=== PATIENT | female | born 1965 | race Caucasian/White ===

== ENCOUNTER 2018-08-20 16:46 | Emergency (ER) | payer OTHER ==
[~2018-08-20] VITALS: Ht 162.6 cm; Wt 56.4 kg
[2018-08-20 16:53] VITALS: Ht 162.6 cm; Wt 56.4 kg
[2018-08-20] MEDS ORDERED: KETOROLAC 30 MG INJ IV STA (17:00)
[2018-08-20] MEDS ORDERED: SODIUM CHLORIDE 0.9% 1L BAG IV* STA (17:00)
[2018-08-20] MEDS ORDERED: CEFEPIME 2GM/50 ML (PMX) 50 ML IVPB STA (17:00)
--- NOTE | 2018-08-20 17:29 | ERD ---
ER Documentation Chief Complaint Chief Complaint fever HPI 52-year-old female with no significant past medical history presenting with complaints of joint pain and back pain for the past 1.5 months. She feels that yesterday she started having fevers. She denies any dysuria but states that there is a foul smell to her urine. She denies any chest pain, shortness of breath, diarrhea, constipation, abdominal pain. She does have a mild cough. No URI symptoms otherwise. She went to her primary care doctor about a week ago where she had blood work done that did not show any significant abnormalities. At that time she did not have a fever. 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 ROS All systems reviewed and are negative except as per history of present illness. Medications Home Meds Active Scripts Ciprofloxacin Hcl* (Ciprofloxacin Hcl*) 500 Mg Tablet, 500 MG PO BID for 7 Days, TAB Prov:NUVIA CABALLERO MD 08/20/18 Ibuprofen* (Motrin*) 600 Mg Tab, 600 MG PO Q6H PRN for PAIN AND OR ELEVATED TEMP, #30 TAB Prov:NUVIA CABALLERO MD 08/20/18 Reported Medications Cyclobenzaprine Hcl* (Cyclobenzaprine Hcl*) 5 Mg Tablet, 5 MG PO Q8H, #60 TAB 08/20/18 Allergies Allergies: Coded Allergies: No Known Allergy (Unverified , 08/20/18) PMhx/Soc Medical and Surgical Hx: pt denies Medical Hx Hx Alcohol Use: No Hx Substance Use: No Hx Tobacco Use: No FmHx Family History: diabetes, coronary disease (Mother) Physical Exam Vitals Vital Signs Date Temp Pulse Resp B/P (MAP) Pulse Ox O2 O2 Flow FiO2 Time Delivery Rate 08/20/18 98.0 98 18 114/92 100 Room Air 20:53 (99) 08/20/18 100.3 114 19 112/76 100 Room Air 18:46 (88) 08/20/18 140 22 108/73 97 Room Air 17:30 (85) 08/20/18 104.0 156 28 133/69 97 16:53 (90) Physical Exam Const: No acute distress, nontoxic Head: Atraumatic Eyes: Normal Conjunctiva ENT: Normal External Ears, Nose and Mouth. Neck: Full range of motion. No meningismus. Resp: Left basilar crackles. No wheezing Cardio: Tachycardic with regular rhythm, no murmurs Abd: Soft, non tender, non distended. Normal bowel sounds Skin: No petechiae or rashes Back: No midline or flank tenderness Ext: No cyanosis, or edema. No joint swelling, redness, or overlying erythema. Neur: Awake and alert, normal speech, no facial asymmetry, strength and sensations intact in all 4 extremities Psych: Normal Mood and Affect Result Diagram: 08/20/18 1719 08/20/18 171 Results 24 hrs Laboratory Tests Test 08/20/18 17:11 08/20/18 17:19 08/20/18 17:33 08/20/18 19:25 POC Venous 1.9 mmol/L Lactate White Blood Count 11.1 10^3/ul Red Blood Count 4.31 10^6/ul Hemoglobin 12.0 g/dl Hematocrit 38.1 % Mean Corpuscular 88.4 fl Volume Mean Corpuscular 27.8 pg Hemoglobin Mean Corpuscular 31.5 g/dl Hemoglobin Concen t Red Cell 13.0 % Distribution Width Platelet Count 295 10^3/UL Mean Platelet 10.0 fl Volume Immature 0.800 % Granulocytes % Neutrophils % 81.6 % Lymphocytes % 14.5 % Monocytes % 2.4 % Eosinophils % 0.3 % Basophils % 0.4 % Nucleated Red 0.0 /100WBC Blood Cells % Immature 0.090 10^3/ul Granulocytes # Neutrophils # 9.0 10^3/ul Lymphocytes # 1.6 10^3/ul Monocytes # 0.3 10^3/ul Eosinophils # 0.0 10^3/ul Basophils # 0.0 10^3/ul Nucleated Red 0.0 10^3/ul Blood Cells # Erythrocyte 34 mm/Hr Sedimentation Rate Prothrombin Time 13.0 Sec Prothrombin Time 1.0 Ratio INR International 0.97 Normalized Ratio Activated 27.1 Sec Partial Thrombopl ast Time Sodium Level 138 mmol/L Potassium Level 4.3 mmol/L Chloride Level 107 mmol/L Carbon Dioxide 23 mmol/L Level Anion Gap 8 Blood Urea 11 mg/dl Nitrogen Creatinine 0.76 mg/dl Est Glomerular > 60 mL/min Filtrat Rate mL/min Glucose Level 130 mg/dl Calcium Level 8.8 mg/dl Total Bilirubin 0.6 mg/dl Direct Bilirubin 0.00 mg/dl Indirect 0.6 mg/dl Bilirubin Aspartate Amino 150 IU/L Transf (AST/SGOT) Alanine 111 IU/L Aminotransferase (ALT/SGPT) Alkaline 259 IU/L Phosphatase Troponin I < 0.012 ng/ml C-Reactive 6.3 mg/dl Protein Total Protein 7.7 g/dl Albumin 4.2 g/dl Globulin 3.50 g/dl Albumin/Globulin 1.20 Ratio Urine Color YELLOW Urine Clarity CLOUDY Urine pH 5.0 Urine Specific 1.014 Logan Urine Ketones NEGATIVE mg/dL Urine Nitrite POSITIVE mg/dL Urine Bilirubin NEGATIVE mg/dL Urine NEGATIVE mg/dL Urobilinogen Urine Leukocyte 3+ Felipe/ul Esterase Urine Microscopic 20 /HPF RBC Urine Microscopic > 182 /HPF WBC Urine Squamous FEW /HPF Epithelial Cells Urine Bacteria MODERATE /HPF Urine Mucus FEW /HPF Urine Hemoglobin 2+ mg/dL Urine Glucose NEGATIVE mg/dL Urine Total 1+ mg/dl Protein Lactic Acid Level 1.2 mmol/L Current Medications Medications Dose Sig/Evaristo Start Time Status Last (Trade) Ordered Route PRN Stop Time Admin Dose Reason Admin Sodium 1,690 ml BOLUS OVER 2 08/20/18 DC 08/20/18 Chloride HOURS STAT 17:00 17:29 (NS) IV* 08/20/18 17:12 Cefepime HCl 50 ml @ ONCE STAT 08/20/18 DC 100 mls/hr IVPB 17:00 08/20/18 17:21 Ketorolac 30 mg ONCE STAT 08/20/18 DC Tromethamine IV 17:00 (Toradol) 08/20/18 17:12 Ceftriaxone 50 ml @ ONCE ONCE 08/20/18 DC 08/20/18 Sodium 100 mls/hr IVPB 18:30 19:09 08/20/18 18:59 Procedures/MDM EMERGENT LABS AND DIAGNOSTIC STUDIES: Lab Results above were reviewed and interpreted by me. CBC: no anemia or evidence of infection CMP: No evidence of clinically significant electrolyte abnormality, acidosis, renal failure, hypoglycemia, liver disease, or biliary obstruction Troponin within normal limits, not indicative of cardiac ischemia Lactate within normal limits without evidence of sepsis or tissue hypoperfusion UA: Findings consistent with infection 12-lead EKG was interpreted by Omaira Caballero MD: Sinus tachycardia Normal axis Normal intervals No acute ST or T wave changes suggestive of acute ischemia or STEMI. Radiology Results as interpreted by Radiology below were reviewed by Arlette Caballero MD: Chest x-ray: No acute abnormalities Initial Nursing notes reviewed. Previous Medical Records requested via the Electronic Health Record. EMERGENCY DEPARTMENT COURSE / MEDICAL DECISION MAKING: Patient presented with fever and tachycardia with complaints of chronic joint pain and foul-smelling urine that is new. Sepsis workup was initiated. Workup did not show any signs of severe sepsis or septic shock. Her lactate was within normal limits. She was treated with IV fluids and antibiotics after she was noted to have a possible UTI. Upon reevaluation, the patient's fever has improved and she has improved symptomatically. She does remain somewhat tachycardic. I recommended admission for hydration, antibiotics, and monitoring for her tachycardia. However the patient states that she feels much better and would rather be discharged with oral antibiotics. Risks and benefits of admission and discharge were discussed. Patient chooses to go home and agrees to return for any worsening symptoms or if she is not improving appropriately on outpatient antibiotics. Oral hydration was encouraged. Follow-up with PCP was recommended within the next few days. Critical Care Time: 40 minutes Treatments/Evaluations: Close monitoring and treatment of unstable vital signs, cardiorespiratory, and neurologic status, while maintaining tight balance of fluid, respiratory, and cardiac interventions. This time includes discussing the case with the patient and the patients family. This time does not include all procedures stated elsewhere in this record. This time also includes reviewing old records, labs and radiological studies. This time includes examining and re-examining the patient. Additionally, this time also includes arranging care with admitting and consulting physicians. Departure Diagnosis: Primary Impression: Sepsis Sepsis type: sepsis due to unspecified organism Qualified Codes: A41.9 - Sepsis, unspecified organism Additional Impressions: Pyelonephritis Chronic joint pain Condition: NUVIA Stahl MD Aug 20, 2018 17:29
[2018-08-20] MEDS ORDERED: CYCL5TAB PO (17:37)
[2018-08-20] MEDS ORDERED: CEFTRIAXONE 1 GM/50 ML (PMX) 50 ML IVPB ONE (18:30)
[2018-08-20] MEDS ORDERED: IBUP-1542 PO (20:29)
[2018-08-20] MEDS ORDERED: CIPR500T4 PO (20:29)
[2018-08-20 20:53] VITALS: BP 114/92; PULSE 98; RESP 18
== END 2018-08-20 21:02 | disposition home or self-care (01) ==
LOC: E/R 16:46
DX: A41.9 Sepsis, unspecified organism (principal); N12 Tubulo-interstitial nephritis, not specified as acute or chronic; M25.50 Pain in unspecified joint
CPT/HCPCS: 36415; 71045; 80053; 81001; 83605; 84484; 85025; 85610; 85651; 85730; 86140; 87040; 87086; 87400; 93005; 96361; 96365; 96366; 99291; J0696; J7030; J1885